=== PATIENT | female | born 1970 | race Caucasian/White ===

== ENCOUNTER 2016-04-29 23:29 | Emergency (ER) | payer OTHER, MEDICAID ==
[2016-04-30 00:07] VITALS: BMI 29.5
[2016-04-30 00:15] VITALS: BP 140/83; PULSE 61; RESP 18; TEMP 97.8; O2SAT 99
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
== END 2016-04-30 03:30 | disposition home or self-care (01) ==
LOC: ED 23:29
DX: S00.93XA Contusion of unspecified part of head, initial encounter (principal); S20.01XA Contusion of right breast, initial encounter; Y04.0XXA Assault by unarmed brawl or fight, initial encounter; Y92.239 Unspecified place in hospital as the place of occurrence of the external cause; Y99.0 Civilian activity done for income or pay